=== PATIENT | male | born 1990 | race Caucasian/White ===

== ENCOUNTER 2020-04-19 13:28 | Outpatient (REF) | payer OTHER, SELFPAY ==
--- NOTE | 2020-04-15 11:24 | MHC.HEMONCSW ---
DR. DYER/[facility] DOES NOT ACCEPT [facility] INSURANCE. DR. ALONSO NOW REFERS PT TO [facility]. PH# [phone] FAX# [phone] REFERR/REGISTRATION GIVEN TO JAYLEN AT [facility], MEDICAL RECORDS FAXED. I REQUESTED BY PATHOLOGY SLIDES AND IMAGING DISCS BE MAILED EUGENIO TO [facility]. ONCE IT RECEIPT THEY WILL SCHEDULE PT. MOTHER/PT AWARE.
--- NOTE | 2020-04-19 13:36 | MM_ITS ---
EXAMINATION: MM DIAGNOSTIC DIGITAL BREAST TOMOSYNTHESIS, BILATERAL US DIAGNOSTIC ULTRASOUND BREAST, RIGHT CLINICAL INFORMATION: 29-year-old male with sensitive right retroareolar fullness 4-6 weeks. History testicular cancer status post orchiectomy and recent completion chemotherapy. No prior breast imaging. COMPARISON: None (current study represents initial baseline exam). TECHNIQUE: Digital breast tomosynthesis is performed in both the craniocaudal and mediolateral oblique views along with computer-aided detection (CAD). Synthesized 2D images are generated from the tomosynthesis. Ultrasound right breast is targeted to the retroareolar and periareolar breast. Grayscale imaging and color Doppler are performed without and with harmonics. FINDINGS: There are scattered areas of fibroglandular density (ACR BI-RADS breast composition Category b). There is typical bilateral retroareolar gynecomastia pattern, slightly greater on the right. There is no underlying mass or architectural abnormality. No abnormal calcifications. The axilla and skin contours are unremarkable. Ultrasound right breast demonstrates the gynecomastia pattern retroareolar region. There is no mass or architectural abnormality or focal duct ectasia. No skin thickening or edema tracking in soft tissue planes. Results are discussed with the patient and family at time of visit. IMPRESSION: 1. Bilateral gynecomastia, greater on right. 2. No additional findings on targeted ultrasound. ASSESSMENT: BI-RADS 2: Benign RECOMMENDATION: Patient may be managed and followed as needed based on the clinical impression.
== END 2020-04-19 13:29 | disposition home or self-care (01) ==
LOC: HO.MAMMO 13:28
PROVIDERS: Visit Provider Internal Medicine
DX: N63.10 Unspecified lump in the right breast, unspecified quadrant (principal); N62 Hypertrophy of breast
CPT/HCPCS: 76642; 77062; 77066; 78013

== ENCOUNTER 2020-06-04 14:56 | Emergency (ER) | payer MEDICAID, SELFPAY ==
[2020-06-04 16:11] VITALS: BP 122/78; PULSE 68; RESP 18; TEMP 37; O2SAT 98; BMI 19.6
--- NOTE | 2020-06-04 16:29 | ED_ITS ---
HPI - General Adult General Chief complaint: General Medical Stated complaint: infected port Time Seen by Provider: 06/04/20 16:16 Source: patient Mode of arrival: ambulatory Limitations: no limitations History of Present Illness HPI narrative: patient has a port using for chemotherapy for testicular cancer last time patient used it was 5 weeks ago, for last 2 days noticed redness and pain around the port subjective fever and chills last night increased pain on lifting his right arm. Onset (ago): day(s) (2) Related Data Previous Rx's Medication Instructions Recorded cephalexin [Keflex] 500 mg PO QID 10 Days #40 cap 06/04/20 doxycycline hyclate 100 mg PO BID #20 cap 06/04/20 Allergies Allergy/AdvReac Type Severity Reaction Status Date / Time No Known Allergies Allergy Verified 05/18/20 14:52 [No Known Allergies*] Review of Systems Review of Systems: REVIEW OF SYSTEMS: Pertinent positives and negatives are stated above in the history. GEN: no fatigue, subjective fever and chills + HEENT: no nasal congestion, sore throat, ear pain NEURO: no headache, dizziness, focal weakness PULM: no cough, shortness of breath CV: no chest pain, palpitations, LE edema ABD: no abdominal pain, nausea, vomiting, diarrhea : no dysuria, urgency, frequency SKIN: no rash ROS otherwise negative x 10 PMFSH Past Medical History Medical History Chronic back pain Scoliosis Tinnitus Surgical History History of orchiectomy Family History Family History Brother Testicular cancer Paternal Grandmother Breast cancer Paternal Grandmother Lung cancer Social History Social History Alcohol intake: never Smoking Status: Current every day smoker Tobacco Type: Cigarette Use of substances other than those prescribed or required for medical reasons: Yes Substance Use Type: Marijuana Substance Use Frequency: Daily Advance Directives: No Advance Directives Information Provided: Yes Physical Exam Vital Signs: Vital Signs: Last Vital Signs Temp 98.6 F 06/04/20 16:11 Pulse 56 06/04/20 17:32 Resp 18 06/04/20 17:32 BP 127/74 06/04/20 17:32 Pulse Ox 98 06/04/20 17:32 Body Mass Index 19.6 Const: General: cooperative, healthy appearing, comfortable and no acute distress Nutritional Appearance: average body habitus Orientation/consc iousness: oriented to person, oriented to place and oriented to time Limi tations: no limitations HENMT: Head: Yes normal to inspection Chest: Chest/axillae images: 1. Infected port site with cellulitis and induration and tenderness Resp: Effort & Inspection: normal respiratory effort Auscultation: clear to auscultation bilaterally Cardio: Rate: regular rate Rhythm: regular rhythm Heart sounds: S1 normal heart sound present and S2 normal heart sound present GI: Inspection: Yes normal to inspection Palpation (GI): Soft to palpation Neuro: General: oriented to person, oriented to place and oriented to time Course Course Course Narrative: Patient has stable labs normal lactic acid and normal WBC count seems to be superficial skin infection not involving the port patient received IV Zosyn. Will discharge him home on doxycycline and Keflex Medical Decision Making Lab Data Result diagrams: 06/04/20 16:44 06/04/20 16:44 Labs: Lab Results 06/04/20 06/04/20 06/04/20 Range/Units 16:44 16:44 16:44 WBC 10.7 (4.8-10.8) X10*3/uL RBC 4.52 L (4.60-5.80) X10*6/uL Hgb 15.4 (14.0-18.0) g/dl Hct 43.4 (42-52) % MCV 96.0 (80-98) fL MCH 34.1 H (27.0-33.0) pg MCHC 35.5 (31.0-36.0) g/dl RDW 11.9 (11.0-16.0) % Plt Count 232 (160-400) X10*3/uL MPV 10.6 (9.4-12.4) fL Immature Gran % (Auto) 0.3 (0.0-0.4) % Neut % (Auto) 86.4 H (45-73) % Lymph % (Auto) 7.0 L (20-40) % [place] % (Auto) 5.4 (2-11) % Eos % (Auto) 0.7 (0-4) % Baso % (Auto) 0.2 (0-2) % Lymph # (Auto) 0.8 L (1.2-4.9) X10*3/uL [place] # (Auto) 0.6 (0.1-1.2) X10*3/uL Eos # (Auto) 0.1 (0.0-0.4) X10*3/uL Baso # (Auto) 0.0 (0.0-0.2) X10*3/uL Abs Immat Gran (auto) 0.03 (0.00-0.03) X10*3/uL Absolute Neuts (auto) 9.3 H (2.0-8.3) X10*3/uL Absolute Nucleated RBC 0.000 (0.0-0.012) X10*3/uL Nucleated RBC % (auto) 0.0 (0.0-0.2) /100WBC Sodium 137 (135-145) mmol/L Potassium 4.3 (3.3-5.1) mmol/l Chloride 103 (96-108) mmol/L Carbon Dioxide 24 (22-29) mmol/L Anion Gap 14 (12-20) BUN 12 (9-16) mg/dL Creatinine 1.12 (0.5-1.4) mg/dL Estim Creat Clear Calc 91.3 Estimated GFR > 60 Random Glucose 74 (60-115) mg/dL Lactic Acid 0.9 (0.5-2.0) mmol/L Calcium 8.9 (8.4-10.2) mg/dL Discharge Plan Discharge Clinical Impression: Cellulitis Qualifiers: Site of cellulitis: trunk Site of cellulitis of trunk: chest wall Qualified Code(s): L03.313 - Cellulitis of chest wall Patient Disposition: Home, Self-Care Instructions: Cellulitis (ED) Additional Instructions: Take antibiotics as prescribed. Report the ER/PCP if increased redness or swelling or fever Prescriptions: New doxycycline hyclate 100 mg capsule 100 mg PO BID Qty: 20 RF: 0 cephalexin [Keflex] 500 mg capsule 500 mg PO QID 10 Days Qty: 40 RF: 0 Interventions: ED Discharge Assessment Last Done: 06/04/20 18:16 Discharge Date/Time: 06/04/20 18:17
[2020-06-04 16:53] LABS: MANUAL DIFF FLAG NO
[2020-06-04 16:54] LABS: Basophils Percent Auto 0.2 % (0-2); Eosinophils Absolute Auto 0.1 X10*3/uL (0.0-0.4); Eosinophils Percent Auto 0.7 % (0-4); Hematocrit 43.4 % (42-52); Hemoglobin 15.4 g/dl (14.0-18.0); Imm Gran Abs Auto 0.03 X10*3/uL (0.00-0.03); Imm Gran Pct Auto 0.3 % (0.0-0.4); Lymphocytes Absolute Auto 0.8 X10*3/uL (1.2-4.9); Mean Corpuscular HGB Conc 35.5 g/dl (31.0-36.0); Mean Corpuscular Hemoglobin 34.1 pg (27.0-33.0); Mean Platelet Volume 10.6 fL (9.4-12.4); Monocytes Absolute Auto 0.6 X10*3/uL (0.1-1.2); Monocytes Percent Auto 5.4 % (2-11); Neutrophils Absolute Auto 9.3 X10*3/uL (2.0-8.3); Neutrophils Percent Auto 86.4 % (45-73); Platelet Count 232 X10*3/uL (160-400); Red Blood Count 4.52 X10*6/uL (4.60-5.80); Red Cell Distribution Width 11.9 % (11.0-16.0); White Blood Count 10.7 X10*3/uL (4.8-10.8)
[2020-06-04 17:11] LABS: Lactic Acid 0.9 mmol/L (0.5-2.0)
[2020-06-04 17:13] LABS: Anion Gap 14 (12-20); Blood Urea Nitrogen 12 mg/dL (9-16); Calcium 8.9 mg/dL (8.4-10.2); Carbon Dioxide 24 mmol/L (22-29); Chloride 103 mmol/L (96-108); Creatinine Clr Calc Pharmacy 91.3; Estimated Glomerular Filt Rate > 60; Glucose Random 74 mg/dL (60-115); Potassium 4.3 mmol/l (3.3-5.1); Sodium 137 mmol/L (135-145)
[2020-06-04] MEDS: Piperacillin Sodium/Tazobactam 3.375 GM in 0.9 % Sodium Chloride 50 ML IV (17:30)
[2020-06-04 17:32] VITALS: BP 127/74; PULSE 56; RESP 18; O2SAT 98
--- NOTE | 2020-06-04 17:35 | PC.NURSE ---
pt resting in the stretcher, alert and oriented, skin pwd, respirations even and unlabored, pt here for a infected port a cath on his right side of the chest, red/swollen/tender to touch, skin around the port about 3 inch around the port red and inflamed looking,
--- NOTE | 2020-06-08 09:53 | MHC.HEMONCSW ---
PT MOTHER QUITE DISTRESSED BECAUSE DR. DYER HAS NOT TOLD HER HIS INTERPRETATION OF HIS PET SCAN THAT WAS DONE 2 WEEKS AGO AT [facility]. SHE HAS NOT BEEN ABLE TO REACH HIM EITHER BY PHONE OR PORTAL. REPORTS SCAN SHOWED 2 LUNG NODULES AND LOWER INTESTINAL INFECTION ALONG WITH OTHER CHANGES. I TOLD HER I WILL CALL DR. DYER OFFICE ALL DAY TO ADVOCATE HE CONTACT HER...
--- NOTE | 2020-06-08 11:04 | MHC.HEMONCSW ---
SPOKE WITH MIR AT DR. PLEITEZ OFFICE ABOUT MOTHERS AND MD CORTES. SHE WILL CALL MOTHER EUGENIO...I ALSO ALERTED MOTHER TO EXPECT CALL.
== END 2020-06-04 18:17 | disposition home or self-care (01) ==
PROVIDERS: Emergency Provider Internal Medicine
DX: L03.313 Cellulitis of chest wall (principal); F17.200 Nicotine dependence, unspecified, uncomplicated; Z71.6 Tobacco abuse counseling; F16.90 Hallucinogen use, unspecified, uncomplicated; Z79.899 Other long term (current) drug therapy
CPT/HCPCS: 36415; 80048; 83605; 85025; 87040; 96365; 99284; J2543

== ENCOUNTER 2020-06-17 12:37 | Day surgery (SDC) | payer MEDICAID, SELFPAY ==
[2020-06-17] VITALS (7 sets, daily range): BP systolic 118–131; BP diastolic 71–87; PULSE 58–65; RESP 16–20; TEMP 36.8; O2SAT 95–97; BMI 20.3
--- NOTE | ~2020-06-17 | IR_ITS ---
EXAMINATION: REMOVAL OF PORT-A-CATH. CLINICAL INFORMATION: No longer needed Port-A-Cath. History of testicular cancer. COMPARISON: None TECHNIQUE: Following sterile prep of the area of insertion of the Port-A-Cath along the right anterior chest wall, small skin incision was performed and both sutures anchoring the port were identified and removed. The port was dissected with hemostats. After freeing the port the catheter was slowly pulled out in its entire length. Complete hemostasis achieved at puncture site. 3-0 absorbable sutures were then applied at the skin site and sutured. Sterile dressing applied postprocedure. Patient tolerated procedure well. No significant bleeding seen. IR/IR cvc remove tunnel w prt/ski patrol officer FINDINGS/IMPRESSION: Successful removal of right sided Port-A-Cath/tunneled catheter without significant bleeding.
[2020-06-17 13:19] LABS: Prothrombin Time 12.1 SEC (10.8-13.0)
[2020-06-17 13:21] LABS: Partial Thromboplastin Time 35.7 SEC (24.1-38.0)
[2020-06-17] MEDS: Lidocaine HCl 1 % MPF 5 ML VIAL SUBCUT (15:24)
[2020-06-17] MEDS: Acetaminophen 325 MG TABLET 650 MG PO (16:59)
== END 2020-06-17 17:20 | disposition home or self-care (01) ==
LOC: HO.SSS 12:37
PROVIDERS: Radiology Diagnostic Radiology; Visit Provider Internal Medicine Medical Oncology
PROC: (CPT 36590; principal; 2020-06-17 14:00)
DX: Z45.2 Encounter for adjustment and management of vascular access device (principal); C62.90 Malignant neoplasm of unspecified testis, unspecified whether descended or undescended
CPT/HCPCS: 36415; 36590; 85610; 85730; 99152; 99153; J2250; J3010

== ENCOUNTER → 2024-03-10 14:25 | Outpatient (RCR) | payer MEDICAID, SELFPAY ==
--- NOTE | 2020-05-12 10:56 | MHC.HEMONCSW ---
NEW INSURANCE IS [employer]....EXPLORING IF WE ACCEPT THIS. JESSIE HAD A VIRTUAL APPOINTMENT WITH DR. DYER AT [facility] WHICH PER MOTHER WENT WELL. HE IS COPING WELL. THEY ARE WAITING FOR [facility] OFFICE TO ARRANGE ANOTHER PET SCAN AND FOR DR. SUAREZ TO DISCUSS RENAL ISSUE WITH DR. DYER. MOTHER IS PLEASED WITH PROGRESS THUS FAR. WILL F-UP.
--- NOTE | 2020-05-18 12:50 | PM.HEMONCPN ---
Medical Summary - Medical Summary Chief complaint: Follow-up Medical Summary: Diagnosis: Seminoma stage T2 N3, November 2019 Patient presented with left abdominal pain, testicular swelling and weight loss ongoing for at least 1 year. Massive left retroperitoneal lymphadenopathy measuring 19.9 x 14.7 x 11.1 cm causing left-sided hydronephrosis. He underwent left orchiectomy on 11/17/2019 and left ureteral stent placement. LDH elevated at 1466 unit/liter, HCG 279, AFP 1.2. Post orchiecctomy tumor markers on 11/23/2019; LDH 4780, beta HCG 83. Pathology from left orchiectomy-seminoma, tumor size 10.5 cm, limited to testes, lymphovascular invasion present. PT2 Nx, clinical stage N3,S3, AJCC stage IIIc Patient had good risk seminoma since he has disease limited to lymph nodes. Tumor markers are not taken into consideration for seminomas. Since he has good risk advanced disease, cisplatin based combination chemotherapy with bleomycin, etoposide and cisplatin has been recommended. Three cycles of this has been recommended based on EOR[facility] data which has reported 2 year progression-free survival of 90.4% with 3 cycles of BEP. Pulmonary function tests performed on 11/17/2019 revealed mild to moderate restrictive ventilatory defect with good response to bronchodilator. Diffusion capacity 89%. Patient has been to sperm banking at [facility] in [facility]. Unfortunately, no viable sperm in semen. Started chemotherapy with BP regimen on 11/23/19. MediPort placed. After 2 cycles, pulmonary function test performed, 12/28/2019 showed decrease in diffusion capacity from 89% to 60%. More than 25% drop which necessitated permanent discontinuation of bleomycin. Interval History Interval history: Patient is here in follow-up, he is accompanied by his mother today. He reports no significant complaints but gets occasional nausea. He is eating better. He has occasional discomfort in his abdomen region but no significant change in his bowel habits. He denies cough, shortness of breath, chest pain, fever or chills. Review of Systems - Constitutional Reports as per HPI, Reports no additional constitutional complaints [facility] Medical History: Medical History (Last Updated 05/13/20 @ 08:50 by Mary Payne) Chronic back pain Scoliosis Tinnitus Family History: Family History (Last Updated 05/13/20 @ 08:52 by Mary Payne) Brother Testicular cancer Paternal Grandmother Breast cancer Paternal Grandmother Lung cancer Surgical History: Surgical History (Last Updated 05/13/20 @ 08:50 by Mary Payne) History of orchiectomy Oncology Screenings - ECOG Performance Status ECOG Performance Status: 1 Home Medications and Allergies Allergies Allergy/AdvReac Type Severity Reaction Status Date / Time No Known Allergies Allergy Verified 05/18/20 14:52 [No Known Allergies*] Exam - Constitutional Present: no acute distress - Routine HEENT Exam Head: Present: normal inspection Eye: Present: EOMI - Routine Neck Exam Absent: lymphadenopathy - Routine Respiratory Exam Present: CTAB - Routine Cardiovascular Exam Cardiovascular: Present: RRR, S1, S2 - Routine Abdominal Exam Present: soft. Absent: mass, tenderness - Routine Extremities Exam Absent: pedal edema Data - Labs CBC & Chem 7: 05/18/20 14:45 05/18/20 14:45 Progress Note: A/P (1) Testicular malignant neoplasm Status: Acute Assessment and plan: 1. This is a 29-year-old male with advanced testicular cancer, seminoma diagnosed in November 2019. Left testicular mass and massive left retroperitoneal lymphadenopathy measuring 19.9 x 14.7 x 11.1 cm causing left-sided hydronephrosis. He underwent left orchiectomy on 11/17/2019 and left ureteral stent placement. LDH elevated at 1466 unit/liter, HCG 279, AFP 1.2. Final stage; PT2 Nx, clinical stage N3,S3, AJCC stage IIIc Patient started chemotherapy on 11/23/2019 BEP. Bleomycin discontinued from cycle 3 because of significant drop in diffusion capacity. He received 2 cycles of BEP and 2 cycles of EP. He finished treatment on January 28. LDH in February 2020 was 229, beta-hCG less than 3. CT chest/abdomen and pelvis with contrast in March 2020 revealed stable small pulmonary nodules, limited exam due to motion artifact. Subsegmental atelectasis at lung bases. Retroperitoneal karo mass decreased in size, now measuring 6.1 x 4.8 cm in short axis, 12.2 cm craniocaudal. Previously measured 14.7x11.1x 19.9 cm. PET-CT performed 04/05/2020 revealed mild FDG activity in the large left retroperitoneal mass, maximum SUV 3.9. No other abnormal FDG activity. Patient was given results of imaging study. He was referred to Dr. Covington at [facility] for recommendations about surgery/RPLND. He has had a virtual appointment with Dr. Covington, he is going for PET-CT in [facility] this Saturday and will have an in person meeting with him. 2. Cough, smoker. Patient was strongly advised about smoking cessation. He had bleomycin induced decrease in diffusion capacity. 3. Right breast mass,? Gynecomastia. Mammogram confirmed gynecomastia. CBC shows improvement, tumor markers and comprehensive metabolic panel is pending. Follow-up in 2 months. - Time Spent With Patient Total time spent is greater than 50% in coordination of care (as documented) at patient's floor/unit and/or counseling patient: 15 - 24 minutes
[2020-05-18 14:12] VITALS: BMI 21.2
[2020-05-18 14:13] VITALS: BP 128/80; PULSE 67; RESP 18; TEMP 37.2; O2SAT 97
[2020-05-18 14:57] LABS: MANUAL DIFF FLAG NO
[2020-05-18 15:01] LABS: Basophils Percent Auto 0.3 % (0-2); Eosinophils Absolute Auto 0.1 X10*3/uL (0.0-0.4); Eosinophils Percent Auto 1.3 % (0-4); Hematocrit 44.2 % (42-52); Hemoglobin 15.3 g/dl (14.0-18.0); Imm Gran Abs Auto 0.01 X10*3/uL (0.00-0.03); Imm Gran Pct Auto 0.1 % (0.0-0.4); Lymphocytes Absolute Auto 0.8 X10*3/uL (1.2-4.9); Lymphocytes Percent Auto 9.3 % (20-40); Mean Corpuscular HGB Conc 34.6 g/dl (31.0-36.0); Mean Corpuscular Volume 98.2 fL (80-98); Mean Platelet Volume 10.9 fL (9.4-12.4); Monocytes Absolute Auto 0.5 X10*3/uL (0.1-1.2); Neutrophils Absolute Auto 7.2 X10*3/uL (2.0-8.3); Platelet Count 222 X10*3/uL (160-400); Red Cell Distribution Width 11.9 % (11.0-16.0); White Blood Count 8.6 X10*3/uL (4.8-10.8)
[2020-05-18 15:29] LABS: Alanine Aminotransferase 8 U/L (0-40); Albumin Level 4.4 g/dL (3.5-5.0); Alkaline Phosphatase 58 U/L (39-117); Anion Gap 13 (12-20); Aspartate Amino Transferase 15 U/L (5-37); Bilirubin Total 0.8 mg/dL (0.0-1.0); Blood Urea Nitrogen 13 mg/dL (9-16); Calcium 8.9 mg/dL (8.4-10.2); Carbon Dioxide 25 mmol/L (22-29); Chloride 104 mmol/L (96-108); Creatinine Clr Calc Pharmacy 98.4; Estimated Glomerular Filt Rate > 60; Glucose Random 100 mg/dL (60-115); Lactate Dehydrogenase 205 U/L (118-273); Potassium 4.2 mmol/l (3.3-5.1); Sodium 138 mmol/L (135-145); Total Protein 6.9 g/dL (6.5-8.0)
[2020-05-19 10:32] LABS: HCG Tumor Marker <3 mIU/mL (<5)
[2020-05-19 11:17] LABS: Alpha Fetoprotein 1.2 ng/mL (<6.1)
--- NOTE | 2020-05-23 11:10 | MHC.HEMONCSW ---
BEING SEEN BY DR. DYER AT [facility]. REPORTS COPING WELL. ACCOMPANIED BY MOTHER USUAL. EDUCATION AND SUPPORT PROVIDED.
--- NOTE | 2020-06-01 15:49 | MHC.HEMONCMA ---
On 05/26/20 I left a message for patient to call me back regarding his medical insurance. On 05/27/20 I left a message on pt's mom phone to have patient return my call. Today is 06/01/20 and patient has not returned call. Patient's insurance is [facility], he's been assigned to [facility]. I called [facility] at [phone] to request a referral, but they won't issue a referral because patient has not been seen there.
--- NOTE | 2020-06-03 16:15 | MHC.HEMONC ---
PT'S MUM(KOLBY) CALLED TO AND SPOKE WITH DR ALONSO, ABOUT PT'S PORT SITE APPEAR TO BE INFECTED. DR ALONSO REFERRED PT TO THE ED.
--- NOTE | 2020-06-16 15:23 | MHC.HEMONCMA ---
Patient's mother called in concerned about her sons port being infected and the skin coming off. I spoke with Dr Dumont since this is a Dr Moyer patient, she states that according to Dr Moyer's plan we can go ahead and schedule the removal. I called and scheduled with radiology and the patient is having it removed tomorrow 06/17/2020 at 2pm. Patient must be NPO 8 hours before, he will need bloodwork to check his BUN and creatine and that he needs to report to short stay. Called and spoke with patient's mother and explained everything, she is ok with the plan.
== END | disposition home or self-care (01) ==
LOC: HO.ONC 05-18 14:04
PROVIDERS: Visit Provider Internal Medicine
DX: C62.92 Malignant neoplasm of left testis, unspecified whether descended or undescended (principal); R19.09 Other intra-abdominal and pelvic swelling, mass and lump; R91.8 Other nonspecific abnormal finding of lung field; R05 Cough; F17.200 Nicotine dependence, unspecified, uncomplicated; Z71.6 Tobacco abuse counseling; Z92.21 Personal history of antineoplastic chemotherapy; Z90.79 Acquired absence of other genital organ(s)
CPT/HCPCS: 36415; 80053; 82105; 83615; 84702; 85025; 99213; J1642